=== PATIENT | male | born 1960 | race Caucasian/White ===

== ENCOUNTER → 2018-06-07 | Outpatient (CLI) | payer OTHER ==
--- NOTE | 2018-06-07 11:28 | US ---
EXAMINATION TYPE: US liver DATE OF EXAM: 06/07/2018 COMPARISON: NONE CLINICAL HISTORY: R94.5 Abnormal liver function studies. EXAM MEASUREMENTS: Liver Length: 13.0 cm Gallbladder Wall: 0.2 cm CBD: 0.5 cm Right Kidney: 11.3 x 5.8 x 5.6 cm Pancreas: Obscured by bowel gas Liver: wnl Gallbladder: wnl Evidence for sonographic Monge's sign: No CBD: wnl Right Kidney: No hydronephrosis or masses seen IMPRESSION: No sonographic sequela of hepatocellular disease despite the abnormal liver function stud ies. No focal hepatic mass is seen.
== END ==
LOC: RADUSWWP 10:25
PROVIDERS: ATTEND Internal Medicine
DX: R94.5 Abnormal results of liver function studies (principal)
CPT/HCPCS: 76705